=== PATIENT | female | born 1975 | race Caucasian/White ===

== ENCOUNTER 2018-10-15 08:47 | Day surgery (SDC) | payer BC, OTHER ==
[~2018-10-15 08:47] MED LIST: ESCI10TA PO; PANT20TA3 PO
== END 2018-10-15 12:00 | disposition home or self-care (01) ==
LOC: GIL 08:47
PROVIDERS: ATTEND Internal Medicine Gastroenterology
DX: R19.4 Change in bowel habit (principal); Z53.9 Procedure and treatment not carried out, unspecified reason

== ENCOUNTER 2018-10-21 09:47 | Day surgery (SDC) | payer OTHER ==
[~2018-10-21] VITALS: Ht 165.1 cm; Wt 64.0 kg
[2018-10-21 10:29] VITALS: Ht 165.1 cm; Wt 64.0 kg
[2018-10-21] MEDS ORDERED: PROPOFOL 40 ML ONE (11:21)
[2018-10-21] MEDS ORDERED: LIDOCAINE 2% (SDV) 5 ML INJ ONE (11:22)
[2018-10-21 11:30] VITALS: BP 112/64; PULSE 49; RESP 14
[2018-10-21 12:39] VITALS: BP 137/82; PULSE 55; RESP 18
== END 2018-10-21 14:15 | disposition home or self-care (01) ==
LOC: GIL 09:47
PROVIDERS: ATTEND Internal Medicine Gastroenterology
DX: R19.4 Change in bowel habit (principal); K64.8 Other hemorrhoids
CPT/HCPCS: 45378; 84703; Z7610